=== PATIENT | female | born 1965 | race Two or more races ===

== ENCOUNTER 2024-12-26 13:35 | Emergency (ER) | payer OTHER ==
[~2024-12-26] VITALS: Ht 157.5 cm; Wt 52.3 kg
--- NOTE | 2024-12-26 15:13 | DVH ---
ULTRASOUND ABDOMEN, LIMITED: REASON FOR EXAM: FLUID CHECK, POSS PARACENTESIS TECHNIQUE: Real-time sector scans in the transverse and longitudinal planes were obtained in the abd omen. FINDINGS: The liver is echogenic and nodular, suggestive of cirrhosis. There is trace perihepatic as cites. There is no appreciable fluid in the left lower quadrant. IMPRESSION: Trace perihepatic ascites.
[2024-12-26 15:20] VITALS: TEMP 98.1
[2024-12-26 15:22] LABS: Hematocrit 36.0 % (36.0-46.0); Hemoglobin 12.0 g/dL (12.2-16.2); Mean Corpuscular Hemoglobin 28.7 pg (28.0-32.0); Mean Corpuscular Volume 86.4 fL (80.0-100.0); Nucleated Red Blood Cells % 0.0 %
[2024-12-26 15:23] VITALS: PULSE 113; RESP 19; O2SAT 95
[2024-12-26 15:45] LABS: INR 1.54 (0.9-1.15); Partial Thromboplastin Time 34.5 SEC (24.5-34.5); Prothrombin Time 15.6 sec (9.3-11.8)
[2024-12-26 16:00] VITALS: BP 133/79; PULSE 123; RESP 19
[2024-12-26 16:04] LABS: Carbon Dioxide 23 mmol/L (20-31)
[2024-12-26 16:05] LABS: Alanine Aminotransferase 69 U/L (7-40); Albumin 3.3 g/dL (3.2-4.8); Alkaline Phosphatase 717 U/L (46-116); Anion Gap 9 (5-15); BUN/Creatinine Ratio 17.0 (10.0-20.0); Blood Urea Nitrogen 9 mg/dL (9-23); Calcium 8.0 mg/dL (8.7-10.4); Chloride 96 mmol/L (98-107); Glucose 123 mg/dL (74-106); Magnesium 2.5 mg/dL (1.6-2.6); Potassium 4.4 mmol/L (3.5-5.1); Sodium 128 mmol/L (136-145); Total Protein 6.4 g/dL (5.7-8.2)
[2024-12-26 16:06] LABS: Bilirubin, Total 5.7 mg/dL (0.2-1.0)
[2024-12-26 16:08] VITALS: O2SAT 95
--- NOTE | 2024-12-26 16:20 | DVH ---
EXAM: XY KUB ABDOMEN SINGLE VIEW HISTORY: abdominal distension COMPARISON: US ABDOMEN LIMITED on DOS: 12/26/24 TECHNIQUE: Supine view of the abdomen FINDINGS/IMPRESSION: Nonobstructive bowel gas pattern noted. There is no evidence for pneumoperitoneum. No abnormal calcif ications noted. [id number] stool burden. Correlate for constipation
--- NOTE | 2024-12-26 16:57 | ED.PDOC ---
General HPI Comments This is a 59-year-old female with stage IV metastatic breast cancer on home hospice care (since 1 day), came to the hospital due to abdominal distention and discomfort. per patient she has abdominal distention and pain since 3 months which worsened since 1 week. she has history of breast cancer since 20 years and was in remission for 15 years and has relapsed 5 years back. due to advanced breast cancer, she has decided comfort care and has been on home hospice care since 1 day, and has come to the hospital due to worsening of abdominal pain and distension. she also reports of constipation and had last bowel movement 6 days back. she denies, fever, SOB or chest pain. Chief Complaint: Abdominal Pain Time Seen by MD: 13:47 Allergies: Coded Allergies: NO KNOWN ALLERGIES (Unverified , 12/26/24) Mode of Arrival: Wheelchair Past Medical History PAST MEDICAL HISTORY: Cancer Past Medical History (Other): stage 4 breast cancer Family History Family History: Reviewed,noncontributory to illness, No family hx of Cancer, No family hx of DM, No family hx of Heart yfn, No family hx of HTN, No family hx ofKidney yfn, No family hx of Liver yfn, No family hx of Lung yfn, No family hx of Stroke Social History Smoker: Non-Smoker Alcohol: Denies ETOH Use Drugs: Denies Drug Use Constitutional: reports: fatigue, malaise, weakness; denies: chills, diaphoresis, fever, sweats, others EENTM: denies: blurred vision, double vision, ear bleeding, ear discharge, ear drainage, ear pain, ear ringing, eye pain, eye redness, hearing loss, mouth pain, mouth swelling, nasal discharge, nose bleeding, nose congestion, nose pain, photophobia, tearing, throat pain, throat swelling, voice changes, others Respiratory: denies: cough, hemoptysis, orthopnea, SOB at rest, shortness of breath, SOB with excertion, stridor, wheezing, others Cardiovascular: denies: chest pain, dizzy spells, diaphoresis, edema, irregular heart beat, left arm pain, lightheadedness, palpitations, PND, syncope, others Gastrointestinal: reports: abdomen distended, abdominal pain, poor appetite; denies: blood streaked bowels, constipated, diarrhea, dysphagia, difficulty swallowing, hematemesis, melena, nausea, poor fluid intake, rectal bleeding, rectal pain, vomiting, others Genitourinary: denies: abnormal vagina bleeding, burning, dyspareunia, dysuria, frequency, hematuria, incontinence, pain, , vagina discharge, urgency, others Neurological: denies: dizziness, fainting, headache, left sided numbness, left sided weakness, numbness, paresthesia, pre-existing deficit, right sided numbness, right sided weakness, seizure, speech problems, tingling, tremors, weakness, others Musculoskeletal: denies: back pain, gout, joint pain, joint swelling, muscle pain, muscle stiffness, neck pain, others Integumetry: denies: bruises, change in color, change in hair/nails, dryness, laceration, lesions, lumps, rash, wounds, others Allergic/Immunocompromised: denies: Difficulty Healing, Frequent Infections, Hives, Itching, others Hematologic/Lymphatic: denies: anemia, blood clots, easy bleeding, easy bruising, swollen glands, others Endocrine: denies: excessive hunger, excessive sweating, excessive thirst, excessive urination, flushing, intolerance to cold, intolerance to heat, unex plained weight gain, unexplained weight loss, others Psychiatric: denies: anxiety, bipolar disorder, depression, hopeless, panic disorder, schizophrenia, sleepless, suicidal, others Physical Exam General Appearance: Cachectic, Moderate Distress HEENT: Normal ENT Inspection, Pharynx Normal, TMs Normal Neck: Full Range of Motion, Non-Tender, Normal, Normal Inspection Respiratory: Chest Non-Tender, Lungs Clear, No Accessory Muscle Use, No Respiratory Distress, Normal Breath Sounds Cardiovascular: No Edema, No JVD, No Murmur, No Gallop, Normal Peripheral Pulses, Regular Rate/Rhythm Breast Exam: Other Gastrointestinal: Diffuse, Distended Genitalia: Deferred Pelvic: Deferred Rectal: Deferred Extremities: No calf tenderness, Normal capillary refill, Normal inspection, Normal range of motion, Non-tender, No pedal edema Neurologic: Alert, treasury specialist II-XII nml as Tested, No Motor Deficits, Normal Affect, Normal Mood, No Sensory Deficits Cerebellar Function: Normal Reflexes: Normal Skin: Dry, Normal Color, Warm Lymphatic: No Adenopathy Was a procedure done? Was a procedure done?: No Differential Diagnosis Kidney stone (Female): Bowel obstruction Other Differential Diagnosis Ascitis, constipation, metastatic cancer, X-Ray, Labs, Meds, VS Vital Signs Date Time Temp Pulse Resp B/P (MAP) Pulse Ox O2 Delivery O2 Flow Rate FiO2 12/26/24 16:08 95 Room Air* 0 21 12/26/24 16:00 123 19 133/79 (97) 96 12/26/24 15:23 113 19 95 Room Air* 0 21 12/26/24 15:20 98.1 113 19 127/76 (93) 96 98.1 12/26/24 13:37 98.6 115 18 123/75 95 98.6 Lab Test 12/26/24 15:22 12/26/24 14:57 Range/Units POC Glucose 132 H 70-106 mg/dl White Blood Count 18.7 H 4.4-10.8 10^3/uL Red Blood Count 4.17 4.0-5.20 10^6/uL Hemoglobin 12.0 L 12.2-16.2 g/dL Hematocrit 36.0 36.0-46.0 % Mean Corpuscular Volume 86.4 80.0-100.0 fL Mean Corpuscular Hemoglobin 28.7 28.0-32.0 pg Mean Corpuscular Hemoglobin Concent 33.2 32.0-36.0 g/dL Red Cell Distribution Width 18.6 H 11.8-14.3 % Platelet Count 397 140-450 10^3/uL Mean Platelet Volume 7.8 6.9-10.8 fL Neutrophils (%) (Auto) 88.0 H 37.0-80.0 % Lymphocytes (%) (Auto) 5.0 L 10.0-50.0 % Monocytes (%) (Auto) 6.5 0.0-12.0 % Eosinophils (%) (Auto) 0.4 0.0-7.0 % Basophils (%) (Auto) 0.1 0.0-2.0 % Neutrophils # (Auto) 16.5 H 1.6-8.6 10 ^3/uL Lymphocytes # (Auto) 0.9 0.4-5.4 10 ^3/uL Monocytes # (Auto) 1.2 0-1.3 10 ^3/uL Eosinophils # (Auto) 0.1 0-0.8 10 ^3/uL Basophils # (Auto) 0 0-0.2 10 ^3/uL Nucleated Red Blood Cells 0.0 % Prothrombin Time 15.6 H 9.3-11.8 sec Prothrombin Time INR 1.54 H 0.9-1.15 Activated Partial Thromboplast Time 34.5 24.5-34.5 SEC Sodium Level 128 L 136-145 mmol/L Potassium Level 4.4 3.5-5.1 mmol/L Chloride Level 96 L 98-107 mmol/L Carbon Dioxide Level 23 20-31 mmol/L Anion Gap 9 5-15 Blood Urea Nitrogen 9 9-23 mg/dL Creatinine 0.53 L 0.550-1.02 mg/dL Glomerular Filtration Rate Calc 105 >90 mL/min BUN/Creatinine Ratio 17.0 10.0-20.0 Serum Glucose 123 H 74-106 mg/dL Calcium Level 8.0 L 8.7-10.4 mg/dL Magnesium Level 2.5 1.6-2.6 mg/dL Total Bilirubin 5.7 H 0.2-1.0 mg/dL Aspartate Amino Transferase (AST) 389 H 13-40 U/L Alanine Aminotransferase (ALT) 69 H 7-40 U/L Alkaline Phosphatase 717 H 46-116 U/L Total Protein 6.4 5.7-8.2 g/dL Albumin 3.3 3.2-4.8 g/dL Current Medications Medications (Trade) Dose Ordered Sig/Radha Route Start Time Stop Time Status Last Admin Lactulose 30 ml ONCE ONCE PO 12/26/24 17:45 12/26/24 17:46 DC 12/26/24 17:34 Sennosides (Senokot Tablet) 8.6 mg ONCE ONCE PO 12/26/24 17:45 12/26/24 17:46 DC 12/26/24 17:34 Time of 1ST Reevaluation: 16:00 Reevaluation 1ST: Unchanged Patient Education/Counseling: Diagnosis, Treatment, Prognosis, Need For Follow Up Family Education/Counseling: Diagnosis, Treatment, Prognosis, Need For Follow Up Comments patient was admitted due to abdominal pain, distention and constipation. patient has history of metastatic stage 4 breast cancer she has been on home hospice care she is taking Percocet t and lorazepam at home abdominal ultrasound was performed and showed trace ascites KUB performed and showed non-obstructive pattern gas in bowel the patient was given lactulose and senna for the constipation patient was repeatedly asking for paracentesis, and detailed discussion was performed with the patient and patients family about the ultrasound findings patient was consoled for the requirement of admission and inpatient care, but the patient was insisting on leaving the hospital SEPSIS Sepsis Screen Date sepsis recognized/suspect: Dec 26, 2024 Time Sepsis recognized/suspect: 1607 Recent Procedure: No On Antibiotic Therapy: No Respiratory Rate >20: No Heart Rate >90: No Temp<36 C (96.8 F) or >38.3 C: No SBP <90 or MAP <65 mmHG: No New Acute Mental Status Change: No Is the patient on CPAP, BIPAP,: No Physician Orders Abdomen Limited (12/26/24 14:38) Kub Abdomen Single View (12/26/24 13:48) Vital Signs Date Time Temp Pulse Resp B/P (MAP) Pulse Ox O2 Delivery O2 Flow Rate FiO2 12/26/24 16:08 95 Room Air* 0 21 12/26/24 16:00 123 19 133/79 (97) 96 12/26/24 15:23 113 19 95 Room Air* 0 21 12/26/24 15:20 98.1 113 19 127/76 (93) 96 98.1 12/26/24 13:37 98.6 115 18 123/75 95 98.6 Laboratory Tests Test 12/26/24 14:57 White Blood Count 18.7 10^3/uL (4.4-10.8) H Medications Medications Dose Ordered Sig/Radha Route Start Time Stop Time Status Last Admin Dose Admin Lactulose 30 ml ONCE ONCE PO 12/26/24 17:45 12/26/24 17:46 DC 12/26/24 17:34 Sennosides 8.6 mg ONCE ONCE PO 12/26/24 17:45 12/26/24 17:46 DC 12/26/24 17:34 Departure 1 Departure Time of Disposition: 17:30 Impression: Primary Impression: Ascites Additional Impressions: Breast cancer Constipation Non-specific colitis Gastritis Appendicitis Disposition: LEFT AGAINST MEDICAL ADVICE Condition: Poor Critical Care Note Critical Care Time?: No Stability Stability form required: No Heart Score Heart Score: Heart Score Response (Comments) Value History N/A 0 EKG N/A 0 Age 45-64 1 Risk Factors No known risk factors 0 Troponin N/A 0 Total 1 EARNEST LOGAN RESDIENT Dec 26, 2024 16:57
[2024-12-26] MEDS: SENNA 8.6 MG TAB PO ONE (17:34)
[2024-12-26] MEDS: LACTULOSE 20Gm/30ML SOLN PO ONE (17:34)
== END 2024-12-26 17:38 | disposition left against medical advice (07) ==
LOC: ER 13:35
DX: R18.8 Other ascites (principal); C50.919 Malignant neoplasm of unspecified site of unspecified female breast; K59.00 Constipation, unspecified; K29.70 Gastritis, unspecified, without bleeding; K37 Unspecified appendicitis; K52.9 Noninfective gastroenteritis and colitis, unspecified; Z79.899 Other long term (current) drug therapy
CPT/HCPCS: 36415; 74018; 76705; 80053; 82947; 82962; 83735; 85025; 85610; 85730